=== PATIENT | male | born 1965 | race Hispanic/Latino ===

== ENCOUNTER → 2018-04-01 15:40 | Outpatient (CLI) | payer OTHER, SELFPAY ==
--- NOTE | 2018-04-01 | DI.RAD.S_ITS ---
PROCEDURE: XR KNEE LT 3V INDICATIONS: KNEE PAIN TECHNIQUE: 3 views of the knee were acquired. COMPARISON: [facility], CR, XR KNEE RT 3V, 04/01/2018, 15:42. FINDINGS: Bones: No fractures or dislocations. No suspicious bony lesions. Mild narrowing of the medial femorotibial joint and mild tricompartmental periarticular osteophyte formation. Spurring present at the tibial tuberosity Soft tissues: Trace joint effusion. No suspicious soft tissue calcifications. IMPRESSION: Mild knee joint degeneration. Dictated by: Mahesh Paz [facility] Interpreted: Brando Adam MD on 04/01/2018 at 16:23 Approved by: Brando Adam M.D. on 04/01/2018 at 16:33
--- NOTE | 2018-04-01 | DI.RAD.S_ITS ---
PROCEDURE: XR KNEE RT 3V INDICATIONS: KNEE PAIN TECHNIQUE: 3 views of the knee were acquired. COMPARISON: None. FINDINGS: Bones: No fractures or dislocations. No suspicious bony lesions. Mild narrowing of the medial femorotibial joint. Soft tissues: No joint effusion. No suspicious soft tissue calcifications. IMPRESSION: 1. Minimal early knee joint degeneration with mild narrowing of the medial femoral tibial joint. Dictated by: Mahesh Paz [facility] Interpreted: Brando Adam MD on 04/01/2018 at 16:23 Approved by: Brando Adam M.D. on 04/01/2018 at 16:34
== END ==
LOC: LAB 15:43 → RAD 15:47
PROVIDERS: PCP Physician Assistant; Visit Provider Physician Assistant
DX: M17.12 Unilateral primary osteoarthritis, left knee (principal); M25.562 Pain in left knee; M25.561 Pain in right knee
CPT/HCPCS: 73562

== ENCOUNTER → 2018-07-09 13:33 | Outpatient (CLI) | payer OTHER, SELFPAY | PROVIDERS: PCP Physician Assistant; Visit Provider Physician Assistant | DX: R50.9 Fever, unspecified (principal) ==

== ENCOUNTER → 2018-10-24 13:31 | Outpatient (CLI) | payer OTHER, SELFPAY ==
--- NOTE | 2018-10-24 | DI.US.S_ITS ---
PROCEDURE: US ABDOMEN COMPLETE INDICATIONS: ABNORMAL RESULTS OF LIVER FUNCTION TESTS TECHNIQUE: Real-time scanning was performed of the abdominal and retroperitoneal organs, with image documentation. COMPARISON: None. FINDINGS: Liver: Liver is normal in size and homogeneous in echotexture. Gallbladder: Borderline gallbladder wall thickening is present with slight nodularity to the wall of the gallbladder. These focal nodules are non-mobile/affixed in measure up to 4 mm in diameter. No definite cholelithiasis is evident. There is no pericholecystic fluid. Biliary ducts: Intrahepatic bile ducts are non-dilated. Extrahepatic bile duct caliber measures 4 mm. Normal is 6-7 mm or less in diameter, or 10 mm or less post-cholecystectomy. Pancreas: Visualized portions of the pancreas demonstrates slight increased echogenicity. Spleen: The spleen is mildly enlarged at 12.9 cm in length. No focal splenic lesions are evident. Kidneys: Kidneys are normal in size and echotexture. Right kidney measures 12.4 cm long; left kidney measures 12.6 cm long. No hydronephrosis or shadowing nephrolithiasis. No solid masses. An extrarenal pelvis versus a parapelvic cyst on the left appears to be present. Aorta: Visualized aorta is normal in caliber at less than 3 cm. Iliacs: Proximal common iliac arteries are normal in caliber at less than 2.5 cm. IVC: Intrahepatic inferior vena cava is patent. Miscellaneous: No free abdominal fluid. IMPRESSION: 1. Mild prominence of the gallbladder wall with multiple subcentimeter polyps is nonspecific, but may be seen in the setting of adenomyomatosis. Followup imaging in 12-18 months would be helpful to reevaluate the wall of the gallbladder. 2. No cholelithiasis. 3. Mild enlargement of the spleen. 4. No ascites. Dictated by: Cale Wallace M.D. on 10/24/2018 at 13:22 Approved by: Cale Wallace M.D. on 10/24/2018 at 13:26
== END ==
PROVIDERS: PCP Physician Assistant; Visit Provider Physician Assistant
DX: R94.5 Abnormal results of liver function studies (principal); K82.4 Cholesterolosis of gallbladder; R16.1 Splenomegaly, not elsewhere classified
CPT/HCPCS: 76700

== ENCOUNTER → 2019-07-24 15:28 | Outpatient (ROUT) | payer OTHER, SELFPAY ==
[2019-07-24 16:50] LABS: HIV 1 & 2 Ab/Ag 4th Gen Combo NEGATIVE (NEGATIVE); Hep C Virus Ab w/Reflex Quant NEGATIVE s/c (NEGATIVE)
[2019-07-24 17:17] LABS: Urine N gonorrhoeae NOT DETECTED
[2019-07-24 17:22] LABS: Urine Chlamydia NOT DETECTED
[2019-07-27 20:31] LABS: RPR Screen Nonreactive (Nonreactive)
== END ==
PROVIDERS: PCP Physician Assistant; Visit Provider Student in an Organized Health Care Education/Training Program
DX: Z11.3 Encounter for screening for infections with a predominantly sexual mode of transmission (principal); E11.9 Type 2 diabetes mellitus without complications
CPT/HCPCS: 86592; 86803; 87389; 87491; 87591

== ENCOUNTER → 2020-02-01 08:03 | Outpatient (CLI) | payer OTHER, SELFPAY ==
[2020-02-01 09:43] LABS: Hemoglobin A1C% w Est Avg Glu 10.9 % (4.0-6.0)
[2020-02-01 10:48] LABS: Hepatitis B Surface Antigen NEGATIVE s/c (NEGATIVE)
== END ==
PROVIDERS: PCP Internal Medicine; Referring Provider Internal Medicine; Visit Provider Internal Medicine
DX: E11.9 Type 2 diabetes mellitus without complications (principal); R94.5 Abnormal results of liver function studies
CPT/HCPCS: 36415; 83036; 87340

== ENCOUNTER → 2020-07-18 09:38 | Outpatient (CLI) | payer OTHER, SELFPAY ==
--- NOTE | 2020-07-18 | DI.US.S_ITS ---
PROCEDURE: US RENAL COMPLETE INDICATIONS: MICROSCOPIC HEMATURIA TECHNIQUE: Real-time scanning was performed of the kidneys and bladder, with image documentation. COMPARISON: None. FINDINGS: Kidneys: Kidneys are normal in size. Right kidney measures 14.5 cm long; left kidney measures 12.5 cm long. Right renal cortical thickness is 2 cm; left renal cortical thickness is 1.4 cm. Renal cortical echotexture is normal. No hydronephrosis or nephrolithiasis. No suspicious solid mass lesions. A a left peripelvic cyst is seen that measures up to 1.8 cm. Bladder: Pre-void bladder volume is 177 mL. Post-void residual is 0 mL. Pre-void images demonstrate no intraluminal masses or stones. On pre-void images, both ureteral jets are noted with color Doppler interrogation. (Of note, ureteral jets may not be detectable in up to 25% of cases due to insufficient differences in specific gravity between ureteral and bladder urine). Miscellaneous: No free pelvic fluid. IMPRESSION: A cause of the patient's presenting history of microscopic hematuria is not seen on these ultrasound images. For further evaluation of the patient's presenting history of hematuria, please consider a dedicated hematuria protocol CT without and with contrast (assuming that there is no contraindication). Dictated by: Augie Pederson M.D. on 07/18/2020 at 9:25 Approved by: Augie Pederson M.D. on 07/18/2020 at 9:26
== END ==
PROVIDERS: PCP Student in an Organized Health Care Education/Training Program; Referring Provider Student in an Organized Health Care Education/Training Program; Visit Provider Student in an Organized Health Care Education/Training Program
DX: R31.21 Asymptomatic microscopic hematuria (principal)
CPT/HCPCS: 76770

== ENCOUNTER → 2022-08-04 15:54 | Outpatient (CLI) | payer OTHER, SELFPAY ==
--- NOTE | 2022-08-04 15:55 | DI.US.S_ITS ---
PROCEDURE: US ABDOMEN LIMITED INDICATIONS: ELEVATED LIVER ENZYMES TECHNIQUE: Real-time focused scanning was performed of the abdomen, with image documentation. COMPARISON: [facility], US, US ABDOMEN COMPLETE, 10/24/2018, 13:37. [facility], CR, XR KNEE ARTHRITIC SERIES LT, 10/28/2018, 8:22. FINDINGS: Liver is diffusely increased in echogenicity. No focal hepatic abnormalities identified. Normal hepatic size. No gallstones identified. Normal gallbladder wall. No pericholecystic fluid. 5 mm gallbladder polyp. Negative sonographic Reed sign. No biliary dilatation. Pancreas not well seen. IMPRESSION: 1. Increased hepatic echogenicity noted possibly related to hepatic steatosis but other sources of hepatocellular disease cannot be excluded. Recommend clinical correlation. 2. 5 mm gallbladder polyp. Dictated by: Mahesh Paz [facility] Interpreted: Jt Clemens MD on 08/04/2022 at 16:24 Transcribed by: RAF on 08/04/2022 at 16:25 Approved by: Jt Clemens M.D. on 08/11/2022 at 15:16
== END ==
PROVIDERS: PCP Student in an Organized Health Care Education/Training Program; Referring Provider Student in an Organized Health Care Education/Training Program; Visit Provider Student in an Organized Health Care Education/Training Program
DX: K82.4 Cholesterolosis of gallbladder (principal); R74.8 Abnormal levels of other serum enzymes
CPT/HCPCS: 76705